=== PATIENT | female | born 1965 | race Caucasian/White ===

== ENCOUNTER 2017-12-29 08:30 | Inpatient (IN) | payer OTHER ==
[~2017-12-29] VITALS: Ht 142.2 cm; Wt 50.9 kg
[~2017-12-29 08:30] MED LIST: CeFAZolin 2 GM/DEXTROSE 0 ML IV ONE; CeFAZolin 2 GM/DEXTROSE 50 ML IV ONE; RINGERS SOLUTION,LACTATED 0 ML IV ONE; RINGERS SOLUTION,LACTATED 1,000 ML IV ONE
[2018-01-06] MEDS ORDERED: RINGERS SOLUTION,LACTATED 1,000 ML IV ONE ×2 (05:17→07:00)
[2018-01-06] MEDS ORDERED: CeFAZolin 2 GM/DEXTROSE 50 ML IV ONE ×2 (05:17→06:00)
[2018-01-06] MEDS ORDERED: DOXY100C PO (05:49)
[2018-01-06] MEDS ORDERED: CEPH500 PO (05:49)
[2018-01-06] MEDS ORDERED: AMLO-511 PO (05:49)
[2018-01-06 06:04] LABS: BASOPHILS % (AUTO) 0.4 % (0.0-2.0); EOSINOPHILS % (AUTO) 2.2 % (1.0-6.0); HEMATOCRIT 26.2 % (36-46); HEMOGLOBIN 8.8 g/dL (12.0-16.0); LYMPHOCYTES # (AUTO) 1.3 K/uL (1.0-4.8); LYMPHOCYTES % (AUTO) 31.7 % (22.0-44.0); MEAN CORPUSCULAR HGB CONC 33.7 G/dL (31.0-37.0); MEAN CORPUSCULAR VOLUME 89 fL (80-100); MONOCYTES # (AUTO) 0.5 K/uL (0.1-1.0); MONOCYTES % (AUTO) 12.2 % (2.0-9.0); NEUTROPHILS # (AUTO) 2.2 K/uL (1.8-7.7); NEUTROPHILS % (AUTO) 53.5 % (40.0-70.0); PLATELET COUNT (AUTO) 211 K/uL (150-450); RED BLOOD CELL COUNT(AUTO) 2.94 MIL/uL (4.00-5.20); RED CELL DISTRIBUTION WIDTH 15.4 % (11.5-14.5)
[2018-01-06 06:09] LABS: GLUCOMETER DEV NAME(LOC) SDS 5; GLUCOSE,POINT OF CARE 367 MG/DL (70-110)
[2018-01-06] MEDS ORDERED: BUPIVACAINE HCL/PF 0.5% 30 ML VIAL ONE (06:47)
[2018-01-06] MEDS ORDERED: GUM MASTIC/STORAX/MSAL/ALCOHOL LIQUID 0.67 ML VIAL TP ONE (06:47)
[2018-01-06] MEDS ORDERED: MUPIROCIN CALCIUM 2% 22 GM OINTMENT ONE (06:47)
[2018-01-06] MEDS ORDERED: VANCOMYCIN HCL 1 GM/VIAL ONE ×2 (06:47→07:27)
[2018-01-06] MEDS ORDERED: MICROFIBRILLAR COLLAGEN 1 GM PACKAGE TP ONE (06:47)
[2018-01-06] MEDS ORDERED: SODIUM CL IRRIG SOLN BAG 3,000 ML IRRIG ONE (06:48)
[2018-01-06] MEDS ORDERED: SODIUM CHLORIDE 0.9% 1,000 ML IV ONE ×5 (07:00→11:10)
[2018-01-06] MEDS ORDERED: INSULIN REGULAR, HUMAN 100 UNITS/ML IVP ONE (07:00)
[2018-01-06] MEDS ORDERED: VANCOMYCIN HCL 500 MG/VIAL ONE (07:27)
[2018-01-06 08:09] LABS: GLUCOMETER DEV NAME(LOC) SDS 5; GLUCOSE,POINT OF CARE 155 MG/DL (70-110)
[2018-01-06] MEDS ORDERED: ONDANSETRON HCL 4 MG/2 ML VIAL IVP PRN (09:00)
[2018-01-06] MEDS ORDERED: MEPERIDINE HCL/PF 25 MG/0.5 ML AMP IVP PRN (09:00)
[2018-01-06] MEDS ORDERED: NALOXONE HCL 0.4 MG/ML VIAL IVP PRN (09:00)
[2018-01-06] MEDS ORDERED: FentaNYL CITRATE-PF 100 MCG/2 ML VIAL IVP PRN ×2 (09:00)
[2018-01-06] MEDS ORDERED: CYCLOBENZAPRINE HCL 10 MG TABLET PO PRN (09:00)
[2018-01-06] MEDS ORDERED: DiphenhydrAMINE HCL 50 MG/ML VIAL IVP PRN (09:00)
[2018-01-06] MEDS ORDERED: HYDROmorphone 2 MG/ML SYRINGE IVP PRN (09:00)
[2018-01-06] MEDS ORDERED: OxyCODONE HCL/ACETAMINOPHEN 5-325 MG TABLET PO PRN (09:00)
[2018-01-06 10:04] LABS: GLUCOMETER DEV NAME(LOC) SDS 5; GLUCOSE,POINT OF CARE 158 MG/DL (70-110)
[2018-01-06] MEDS ORDERED: DEXTROSE 50%-WATER 25 GM/50 ML SYRINGE IVP PRN ×2 (10:15→13:15)
[2018-01-06] MEDS ORDERED: INSULIN LISPRO 100 UNITS/ML SQ PRN (10:15)
[2018-01-06] MEDS ORDERED: ONDANSETRON HCL 4 MG/2 ML VIAL ONE ×2 (10:17→10:56)
[2018-01-06] MEDS ORDERED: ONDANSETRON HCL 4 MG/2 ML VIAL IVP STA ×2 (10:22→10:57)
[2018-01-06] MEDS ORDERED: MEPERIDINE HCL/PF 25 MG/0.5 ML AMP ONE (10:34)
[2018-01-06] MEDS ORDERED: LABETALOL HCL 5 MG/ML 20 ML VIAL IVP STA (10:43)
[2018-01-06] MEDS ORDERED: LABETALOL HCL 5 MG/ML 20 ML VIAL IVP ONE (10:45)
[2018-01-06] MEDS ORDERED: METOCLOPRAMIDE HCL 5 MG/ML 2 ML VIAL ONE (10:56)
[2018-01-06] MEDS ORDERED: METOCLOPRAMIDE HCL 5 MG/ML 2 ML VIAL IVP STA (10:57)
[2018-01-06] MEDS ORDERED: SODIUM CHLORIDE 0.9% 500 ML IV STA (10:58)
[2018-01-06] MEDS ORDERED: VANCOMYCIN HCL 1 GM/D5% WATER 200 ML IV ONE (11:00)
[2018-01-06 11:49] VITALS: BP 151/74
[2018-01-06] MEDS ORDERED: MORPHINE SULFATE 2 MG/ML SYRINGE IVP PRN (13:15)
[2018-01-06] MEDS ORDERED: ACETAMINOPHEN 325 MG TABLET PO PRN (13:15)
[2018-01-06] MEDS ORDERED: HYDROCODONE/ACETAMINOPHEN 5-325 MG TABLET PO PRN (13:15)
[2018-01-06] MEDS ORDERED: ZOLPIDEM TARTRATE 5 MG TABLET PO PRN (13:15)
[2018-01-06] MEDS ORDERED: BISACODYL 10 MG RECTAL RECTAL SUPPOSITORY PR PRN (13:15)
[2018-01-06] MEDS ORDERED: MAGNESIUM HYDROXIDE SUSPENSION 30 ML UDCUP PO PRN (13:15)
[2018-01-06] MEDS: ONDANSETRON HCL 4 MG/2 ML VIAL IVP PRN ×2 (13:37→23:26)
[2018-01-06] MEDS: ACETAMINOPHEN 500 MG TABLET PO SCH ×3 (14:00→20:55)
[2018-01-06] MEDS: KETOROLAC TROMETHAMINE 15 MG/ML VIAL IVP SCH ×3 (15:54→23:22)
[2018-01-06] MEDS: HydrALAZINE HCL 20 MG/ML VIAL IVP PRN ×2 (15:54→23:23)
[2018-01-06 16:00] VITALS: BP 180/85
[2018-01-06] MEDS: INSULIN LISPRO 100 UNITS/ML SQ PRN ×2 (17:41→20:55)
[2018-01-06 17:59] LABS: GLUCOMETER DEV NAME(LOC) PV 4E2; GLUCOSE,POINT OF CARE 275 MG/DL (70-110)
[2018-01-06 17:59] LABS: GLUCOMETER DEV NAME(LOC) PV 4E2; GLUCOSE,POINT OF CARE 358 MG/DL (70-110)
[2018-01-06] MEDS ORDERED: VANCOMYCIN HCL 750 MG in DEXTROSE 5%-WATER 250 ML IV SCH (20:00)
[2018-01-06] MEDS: DOCUSATE SODIUM 100 MG CAPSULE PO SCH (20:08)
[2018-01-06 20:17] VITALS: BP 172/93
[2018-01-06] MEDS: INSULIN GLARGINE,HUM.REC.ANLOG 100 UNITS/ML SQ SCH (20:55)
[2018-01-06 22:14] LABS: GLUCOMETER DEV NAME(LOC) PV 4E2; GLUCOSE,POINT OF CARE 366 MG/DL (70-110)
[2018-01-06 23:44] VITALS: BP 122/57
[2018-01-07] VITALS (16 sets, daily range): BP systolic 108–131; BP diastolic 45–69
[2018-01-07] MEDS ORDERED: KETOROLAC TROMETHAMINE 60 MG/2 ML VIAL IM ONE (05:22)
[2018-01-07] MEDS ORDERED: EPHEDrine SULFATE 50 MG/ML VIAL IM ONE (05:22)
[2018-01-07] MEDS ORDERED: PROPOFOL 1% 20 ML VIAL IVP ONE (05:22)
[2018-01-07] MEDS ORDERED: MIDAZOLAM HCL 2 MG/2 ML VIAL IVP ONE (05:22)
[2018-01-07] MEDS ORDERED: LIDOCAINE/PF 2% 5 ML VIAL IM ONE (05:22)
[2018-01-07] MEDS ORDERED: ONDANSETRON HCL 4 MG/2 ML VIAL IVP ONE (05:22)
[2018-01-07] MEDS ORDERED: FentaNYL CITRATE-PF 100 MCG/2 ML VIAL IVP ONE (05:22)
[2018-01-07] MEDS ORDERED: MORPHINE SULFATE/PF 0.5 MG/ML 10 ML AMP IVP ONE (05:22)
[2018-01-07] MEDS ORDERED: DEXAMETHASONE SOD PHOS 4 MG/ML VIAL IVP ONE (05:22)
[2018-01-07] MEDS ORDERED: KETAMINE HCL 50 MG/ML 10 ML VIAL IVP ONE (05:22)
[2018-01-07] MEDS: KETOROLAC TROMETHAMINE 15 MG/ML VIAL IVP SCH ×3 (05:33→18:14)
[2018-01-07 05:59] LABS: GLUCOMETER DEV NAME(LOC) PV 4E2; GLUCOSE,POINT OF CARE 161 MG/DL (70-110)
[2018-01-07 05:59] LABS: GLUCOMETER DEV NAME(LOC) PV 4E2; GLUCOSE,POINT OF CARE 38 MG/DL (70-110)
[2018-01-07 06:13] LABS: BASOPHILS % (AUTO) 0.2 % (0.0-2.0); EOSINOPHILS % (AUTO) 0 % (1.0-6.0); HEMATOCRIT 22.2 % (36-46); HEMOGLOBIN 7.5 g/dL (12.0-16.0); LYMPHOCYTES # (AUTO) 0.7 K/uL (1.0-4.8); MEAN CORPUSCULAR HEMOGLOBIN 30.1 pg (26.0-34.0); MEAN CORPUSCULAR HGB CONC 33.8 G/dL (31.0-37.0); MEAN CORPUSCULAR VOLUME 89 fL (80-100); MONOCYTES # (AUTO) 0.6 K/uL (0.1-1.0); MONOCYTES % (AUTO) 6.1 % (2.0-9.0); NEUTROPHILS # (AUTO) 8.4 K/uL (1.8-7.7); PLATELET COUNT (AUTO) 185 K/uL (150-450); RED BLOOD CELL COUNT(AUTO) 2.49 MIL/uL (4.00-5.20); RED CELL DISTRIBUTION WIDTH 15.8 % (11.5-14.5)
[2018-01-07 06:22] LABS: NEUTROPHILS % (AUTO) 86.7 % (40.0-70.0)
[2018-01-07 07:14] LABS: CALCIUM, TOTAL 8.6 mg/dL (8.8-10.5); CREATININE 3.14 mg/dL (0.60-1.30); POTASSIUM 4.9 mmol/L (3.5-5.1)
[2018-01-07] MEDS ORDERED: VANCOMYCIN HCL 500 MG in DEXTROSE 5%-WATER 100 ML IV SCH (08:00)
[2018-01-07] MEDS: ENOXAPARIN SODIUM 30 MG/0.3 ML PF SYRINGE SQ SCH (08:39)
[2018-01-07] MEDS: AmLODIPine BESYLATE 5 MG TABLET PO SCH (08:40)
[2018-01-07] MEDS: ACETAMINOPHEN 500 MG TABLET PO SCH ×4 (08:40→21:00)
[2018-01-07] MEDS: PANTOPRAZOLE SODIUM 40 MG DR TABLET PO SCH (08:40)
[2018-01-07] MEDS: DOCUSATE SODIUM 100 MG CAPSULE PO SCH ×2 (08:40→21:05)
[2018-01-07] MEDS: INSULIN GLARGINE,HUM.REC.ANLOG 100 UNITS/ML SQ SCH (09:00)
[2018-01-07] MEDS: INSULIN LISPRO 100 UNITS/ML SQ PRN ×3 (12:13→21:10)
[2018-01-07] MEDS ORDERED: ALBUTEROL SULFATE 2.5 MG/0.5 ML NEB SOLUTION NEB PRN (12:15)
[2018-01-07 13:19] LABS: GLUCOMETER DEV NAME(LOC) PV 4E2; GLUCOSE,POINT OF CARE 264 MG/DL (70-110)
[2018-01-07] MEDS ORDERED: SODIUM CHLORIDE 0.9% 250 ML IV ONE (16:03)
[2018-01-07 17:20] LABS: GLUCOMETER DEV NAME(LOC) PV 4E2; GLUCOSE,POINT OF CARE 281 MG/DL (70-110)
[2018-01-07] MEDS: FERROUS SULFATE 325 MG EC TABLET PO SCH (18:14)
[2018-01-07 22:44] LABS: GLUCOMETER DEV NAME(LOC) PV 4E2; GLUCOSE,POINT OF CARE 247 MG/DL (70-110)
[2018-01-08] VITALS: BP 131/68
[2018-01-08] MEDS: KETOROLAC TROMETHAMINE 15 MG/ML VIAL IVP SCH ×2 (00:21→06:23)
[2018-01-08 04:36] VITALS: BP 135/70
[2018-01-08 06:00] LABS: BASOPHILS % (AUTO) 0.4 % (0.0-2.0); EOSINOPHILS % (AUTO) 1.1 % (1.0-6.0); HEMATOCRIT 25.4 % (36-46); HEMOGLOBIN 8.6 g/dL (12.0-16.0); LYMPHOCYTES # (AUTO) 1.4 K/uL (1.0-4.8); LYMPHOCYTES % (AUTO) 22.3 % (22.0-44.0); MEAN CORPUSCULAR HEMOGLOBIN 30.4 pg (26.0-34.0); MEAN CORPUSCULAR HGB CONC 33.8 G/dL (31.0-37.0); MEAN CORPUSCULAR VOLUME 90 fL (80-100); MONOCYTES # (AUTO) 0.6 K/uL (0.1-1.0); MONOCYTES % (AUTO) 8.7 % (2.0-9.0); NEUTROPHILS # (AUTO) 4.3 K/uL (1.8-7.7); NEUTROPHILS % (AUTO) 67.5 % (40.0-70.0); PLATELET COUNT (AUTO) 181 K/uL (150-450); RED BLOOD CELL COUNT(AUTO) 2.83 MIL/uL (4.00-5.20); RED CELL DISTRIBUTION WIDTH 15.3 % (11.5-14.5)
[2018-01-08 06:17] LABS: CREATININE 3.87 mg/dL (0.60-1.30); POTASSIUM 5.2 mmol/L (3.5-5.1)
[2018-01-08 07:03] LABS: GLUCOMETER DEV NAME(LOC) PV 4E2; GLUCOSE,POINT OF CARE 136 MG/DL (70-110)
[2018-01-08 07:50] VITALS: BP 133/77
[2018-01-08] MEDS: DOCUSATE SODIUM 100 MG CAPSULE PO SCH ×2 (08:32→20:50)
[2018-01-08] MEDS: PANTOPRAZOLE SODIUM 40 MG DR TABLET PO SCH (08:32)
[2018-01-08] MEDS: FERROUS SULFATE 325 MG EC TABLET PO SCH ×3 (08:32→17:08)
[2018-01-08] MEDS: AmLODIPine BESYLATE 5 MG TABLET PO SCH (08:32)
[2018-01-08] MEDS: ENOXAPARIN SODIUM 30 MG/0.3 ML PF SYRINGE SQ SCH (08:33)
[2018-01-08] MEDS: ACETAMINOPHEN 500 MG TABLET PO SCH ×4 (08:39→20:54)
[2018-01-08 11:27] VITALS: BP 133/70
[2018-01-08] MEDS: BACITRACIN 28.4 GM OINTMENT TP SCH (12:04)
[2018-01-08] MEDS: INSULIN LISPRO 100 UNITS/ML SQ PRN ×3 (12:10→20:58)
[2018-01-08] MEDS ORDERED: VANCOMYCIN HCL 1 GM/D5% WATER 200 ML IV PRN (12:15)
[2018-01-08] MEDS ORDERED: CefTAZidime PENTAHYDRATE 0.5 GM in DEXTROSE 5%-WATER 50 ML IV SCH (13:00)
[2018-01-08 13:24] LABS: VANCOMYCIN,RANDOM 32.8 mcg/mL (25.0-50.0)
[2018-01-08 15:39] LABS: GLUCOMETER DEV NAME(LOC) PV 4E2; GLUCOSE,POINT OF CARE 189 MG/DL (70-110)
[2018-01-08 16:54] VITALS: BP 129/74
[2018-01-08 20:17] VITALS: BP 116/59
[2018-01-08] MEDS: HEPARIN SODIUM,PORCINE 5,000 UNITS/ML VIAL SQ SCH (20:51)
[2018-01-08 22:43] LABS: GLUCOMETER DEV NAME(LOC) 6N 1E; GLUCOSE,POINT OF CARE 292 MG/DL (70-110)
[2018-01-08 22:44] LABS: GLUCOMETER DEV NAME(LOC) 6N 1E; GLUCOSE,POINT OF CARE 287 MG/DL (70-110)
[2018-01-09] VITALS (7 sets, daily range): BP systolic 128–148; BP diastolic 62–75
[2018-01-09 05:52] LABS: BASOPHILS % (AUTO) 0.4 % (0.0-2.0); EOSINOPHILS % (AUTO) 1.5 % (1.0-6.0); HEMATOCRIT 25.4 % (36-46); HEMOGLOBIN 8.6 g/dL (12.0-16.0); LYMPHOCYTES # (AUTO) 1.4 K/uL (1.0-4.8); LYMPHOCYTES % (AUTO) 28.7 % (22.0-44.0); MEAN CORPUSCULAR HGB CONC 33.8 G/dL (31.0-37.0); MEAN CORPUSCULAR VOLUME 89 fL (80-100); MONOCYTES # (AUTO) 0.5 K/uL (0.1-1.0); MONOCYTES % (AUTO) 11.2 % (2.0-9.0); NEUTROPHILS # (AUTO) 2.8 K/uL (1.8-7.7); NEUTROPHILS % (AUTO) 58.2 % (40.0-70.0); PLATELET COUNT (AUTO) 190 K/uL (150-450); RED BLOOD CELL COUNT(AUTO) 2.86 MIL/uL (4.00-5.20); RED CELL DISTRIBUTION WIDTH 15.1 % (11.5-14.5)
[2018-01-09 06:17] LABS: % IRON SATURATION 44.6 % (22-44)
[2018-01-09 06:24] LABS: C-REACTIVE PROTEIN QUANT 0.34 mg/dL (0.00-0.30); CALCIUM, TOTAL 8.4 mg/dL (8.8-10.5); CREATININE 3.48 mg/dL (0.60-1.30); MAGNESIUM 2.1 mg/dL (1.80-2.40); PHOSPHORUS 3.6 mg/dL (2.5-4.9); POTASSIUM 5.1 mmol/L (3.5-5.1); VANCOMYCIN,RANDOM 28.9 mcg/mL (25.0-50.0)
[2018-01-09 07:13] LABS: GLUCOMETER DEV NAME(LOC) 6N 1E; GLUCOSE,POINT OF CARE 120 MG/DL (70-110)
[2018-01-09 07:37] LABS: CREATININE,URINE RANDOM 36.1 mg/dL (30.0-125.0)
[2018-01-09 07:58] LABS: ERYTHROCYTE SEDIMENTATION RATE 45 MM/HR (0-20)
[2018-01-09 08:44] LABS: APPEARANCE,URINE CLOUDY (CLEAR); BILIRUBIN,URINE NEGATIVE (NEGATIVE); GLUCOSE, URINE (UA) 100 mg/dL (NEGATIVE); KETONES,URINE NEGATIVE (NEGATIVE); LEUKOCYTE ESTERASE ,URINE TRACE (NEGATIVE); NITRATE,URINE NEGATIVE (NEGATIVE); OCCULT BLOOD,URINE LARGE (NEGATIVE); PH,URINE 5.5 (5.0-8.0); PROTEIN,URINE SEE CONFIRM (NEGATIVE); UROBILINOGEN,URINE 0.2 mg/dL (<=1.0)
[2018-01-09] MEDS: ACETAMINOPHEN 500 MG TABLET PO SCH ×4 (09:00→19:59)
[2018-01-09] MEDS: DOCUSATE SODIUM 100 MG CAPSULE PO SCH ×3 (09:00→19:59)
[2018-01-09] MEDS: PANTOPRAZOLE SODIUM 40 MG DR TABLET PO SCH (09:33)
[2018-01-09] MEDS: HEPARIN SODIUM,PORCINE 5,000 UNITS/ML VIAL SQ SCH ×2 (09:33→20:00)
[2018-01-09] MEDS: AmLODIPine BESYLATE 5 MG TABLET PO SCH (09:34)
[2018-01-09] MEDS: FERROUS SULFATE 325 MG EC TABLET PO SCH ×3 (09:34→17:45)
[2018-01-09] MEDS: BACITRACIN 28.4 GM OINTMENT TP SCH (09:34)
[2018-01-09 09:37] LABS: BACTERIA,URINE None Seen /HPF (None Seen); RBC,URINE >100 /HPF (0-2); SULFOSALICYLIC ACID,URINE 3+ (Negative); WBC,URINE 0-2 /HPF (0-5)
[2018-01-09 09:38] LABS: RENAL EPITHELIAL CELLS,URINE Rare /LPF (None Seen); SQUAMOUS EPITHELIAL CELL,UR Rare /LPF (None Seen)
[2018-01-09] MEDS ORDERED: EPOETIN ALFA 10,000 UNITS/ML VIAL SQ ONE (10:00)
[2018-01-09] MEDS ORDERED: AmLODIPine BESYLATE 5 MG TABLET PO ONE (10:15)
[2018-01-09] MEDS: INSULIN LISPRO 100 UNITS/ML SQ PRN ×3 (11:44→20:16)
[2018-01-09] MEDS: CefTAZidime PENTAHYDRATE 1 GM in DEXTROSE 5%-WATER 50 ML IV SCH (14:31)
[2018-01-09 17:20] LABS: GLUCOMETER DEV NAME(LOC) 6N 1E; GLUCOSE,POINT OF CARE 200 MG/DL (70-110)
[2018-01-09 21:20] LABS: GLUCOMETER DEV NAME(LOC) 6N 2D; GLUCOSE,POINT OF CARE 204 MG/DL (70-110)
[2018-01-09 22:59] LABS: GLUCOMETER DEV NAME(LOC) 6N 1E; GLUCOSE,POINT OF CARE 246 MG/DL (70-110)
[2018-01-10 04:15] VITALS: BP 143/73
[2018-01-10] MEDS: INSULIN LISPRO 100 UNITS/ML SQ PRN ×4 (05:35→20:56)
[2018-01-10 06:19] LABS: CALCIUM, TOTAL 8.4 mg/dL (8.8-10.5); CREATININE 3.32 mg/dL (0.60-1.30)
[2018-01-10 07:04] LABS: GLUCOMETER DEV NAME(LOC) 6N 2D; GLUCOSE,POINT OF CARE 171 MG/DL (70-110)
[2018-01-10 07:10] VITALS: BP 142/80
[2018-01-10] MEDS: HEPARIN SODIUM,PORCINE 5,000 UNITS/ML VIAL SQ SCH ×2 (08:19→20:46)
[2018-01-10] MEDS: PANTOPRAZOLE SODIUM 40 MG DR TABLET PO SCH (08:19)
[2018-01-10] MEDS: AmLODIPine BESYLATE 5 MG TABLET PO SCH (08:19)
[2018-01-10] MEDS: FERROUS SULFATE 325 MG EC TABLET PO SCH ×3 (08:19→17:42)
[2018-01-10] MEDS: BACITRACIN 28.4 GM OINTMENT TP SCH (08:20)
[2018-01-10] MEDS: ACETAMINOPHEN 500 MG TABLET PO SCH ×4 (08:20→20:46)
[2018-01-10] MEDS: DOCUSATE SODIUM 100 MG CAPSULE PO SCH ×2 (09:00→20:46)
[2018-01-10 11:10] VITALS: BP 150/74
[2018-01-10] MEDS ORDERED: LEVO250 PO (12:29)
[2018-01-10] MEDS: CefTAZidime PENTAHYDRATE 1 GM in DEXTROSE 5%-WATER 50 ML IV SCH (13:53)
[2018-01-10 15:10] VITALS: BP 145/81
[2018-01-10] MEDS: LEVOFLOXACIN 250 MG TABLET PO SCH (15:57)
[2018-01-10] MEDS ORDERED: FERROUS SULFATE 325 MG EC TABLET PO SCH (18:00)
[2018-01-10 19:55] VITALS: BP 120/59
[2018-01-10 20:04] LABS: GLUCOMETER DEV NAME(LOC) 6N 2D; GLUCOSE,POINT OF CARE 262 MG/DL (70-110)
[2018-01-10 20:04] LABS: GLUCOMETER DEV NAME(LOC) 6N 2D; GLUCOSE,POINT OF CARE 209 MG/DL (70-110)
[2018-01-10 23:11] VITALS: BP 147/68
[2018-01-11 04:55] VITALS: BP 146/68
[2018-01-11] MEDS: INSULIN LISPRO 100 UNITS/ML SQ PRN ×4 (06:04→20:29)
[2018-01-11 06:15] LABS: GLUCOMETER DEV NAME(LOC) 6N 1E; GLUCOSE,POINT OF CARE 197 MG/DL (70-110)
[2018-01-11 06:34] LABS: CALCIUM, TOTAL 8.6 mg/dL (8.8-10.5); CREATININE 2.85 mg/dL (0.60-1.30); POTASSIUM 4.7 mmol/L (3.5-5.1)
[2018-01-11 07:15] VITALS: BP 142/73
[2018-01-11] MEDS: PANTOPRAZOLE SODIUM 40 MG DR TABLET PO SCH (08:06)
[2018-01-11] MEDS: FERROUS SULFATE 325 MG EC TABLET PO SCH ×3 (08:06→17:41)
[2018-01-11] MEDS: DOCUSATE SODIUM 100 MG CAPSULE PO SCH ×2 (08:06→20:28)
[2018-01-11] MEDS: HEPARIN SODIUM,PORCINE 5,000 UNITS/ML VIAL SQ SCH ×2 (08:07→20:28)
[2018-01-11] MEDS: ACETAMINOPHEN 500 MG TABLET PO SCH ×4 (08:07→20:28)
[2018-01-11] MEDS: AmLODIPine BESYLATE 5 MG TABLET PO SCH (08:58)
[2018-01-11] MEDS: BACITRACIN 28.4 GM OINTMENT TP SCH (08:58)
[2018-01-11 11:17] VITALS: BP 136/78
[2018-01-11 11:38] LABS: GLUCOMETER DEV NAME(LOC) 6N 2D; GLUCOSE,POINT OF CARE 242 MG/DL (70-110)
[2018-01-11 11:40] LABS: GLUCOMETER DEV NAME(LOC) 6N 2D; GLUCOSE,POINT OF CARE 250 MG/DL (70-110)
[2018-01-11] MEDS ORDERED: AMLO-512 PO (12:29)
[2018-01-11 17:39] LABS: GLUCOMETER DEV NAME(LOC) 6N 1E; GLUCOSE,POINT OF CARE 251 MG/DL (70-110)
[2018-01-11 20:09] VITALS: BP 140/67
[2018-01-11 23:30] VITALS: BP 134/69
[2018-01-12 03:30] VITALS: BP 126/65
[2018-01-12 05:41] LABS: CALCIUM, TOTAL 8.5 mg/dL (8.8-10.5); CREATININE 3.01 mg/dL (0.60-1.30); POTASSIUM 4.5 mmol/L (3.5-5.1)
[2018-01-12] MEDS: INSULIN LISPRO 100 UNITS/ML SQ PRN ×4 (06:00→23:14)
[2018-01-12 06:09] LABS: GLUCOMETER DEV NAME(LOC) 6N 1E; GLUCOSE,POINT OF CARE 154 MG/DL (70-110)
[2018-01-12 06:45] LABS: GLUCOMETER DEV NAME(LOC) 6N 2D; GLUCOSE,POINT OF CARE 232 MG/DL (70-110)
[2018-01-12 08:00] VITALS: BP 149/70
[2018-01-12] MEDS: ACETAMINOPHEN 500 MG TABLET PO SCH ×5 (09:00→21:21)
[2018-01-12] MEDS: BACITRACIN 28.4 GM OINTMENT TP SCH (09:05)
[2018-01-12] MEDS: HEPARIN SODIUM,PORCINE 5,000 UNITS/ML VIAL SQ SCH ×2 (09:05→21:20)
[2018-01-12] MEDS: AmLODIPine BESYLATE 5 MG TABLET PO SCH (09:06)
[2018-01-12] MEDS: LEVOFLOXACIN 250 MG TABLET PO SCH (09:06)
[2018-01-12] MEDS: PANTOPRAZOLE SODIUM 40 MG DR TABLET PO SCH (09:06)
[2018-01-12] MEDS: FERROUS SULFATE 325 MG EC TABLET PO SCH ×3 (09:06→18:24)
[2018-01-12] MEDS: DOCUSATE SODIUM 100 MG CAPSULE PO SCH ×2 (09:06→21:00)
[2018-01-12] MEDS ORDERED: FLUCONAZOLE 200 MG TABLET PO ONE (11:15)
[2018-01-12 11:56] VITALS: BP 137/66
[2018-01-12 12:04] LABS: BILIRUBIN,DIRECT 0.1 mg/dL (0.00-0.20); BILIRUBIN,TOTAL 0.3 mg/dL (0.1-1.0); TOTAL PROTEIN, SERUM 6.5 g/dL (6.4-8.2)
[2018-01-12 14:14] LABS: GLUCOMETER DEV NAME(LOC) 6N 2D; GLUCOSE,POINT OF CARE 169 MG/DL (70-110)
[2018-01-12 16:09] VITALS: BP 138/66
[2018-01-12 19:26] VITALS: BP 141/66
[2018-01-12 21:35] LABS: GLUCOMETER DEV NAME(LOC) 6N 2D; GLUCOSE,POINT OF CARE 218 MG/DL (70-110)
[2018-01-12 23:44] LABS: GLUCOMETER DEV NAME(LOC) 6N 2D; GLUCOSE,POINT OF CARE 169 MG/DL (70-110)
[2018-01-12 23:53] VITALS: BP 135/64
[2018-01-13 04:54] VITALS: BP 130/67
[2018-01-13 05:14] LABS: GLUCOMETER DEV NAME(LOC) 6N 1E; GLUCOSE,POINT OF CARE 104 MG/DL (70-110)
[2018-01-13 07:38] VITALS: BP 125/70
[2018-01-13] MEDS: PANTOPRAZOLE SODIUM 40 MG DR TABLET PO SCH (09:31)
[2018-01-13] MEDS: FERROUS SULFATE 325 MG EC TABLET PO SCH ×3 (09:32→16:34)
[2018-01-13] MEDS: AmLODIPine BESYLATE 5 MG TABLET PO SCH (09:32)
[2018-01-13] MEDS: FLUCONAZOLE 200 MG TABLET PO SCH (09:32)
[2018-01-13] MEDS: DOCUSATE SODIUM 100 MG CAPSULE PO SCH ×2 (09:32→21:00)
[2018-01-13] MEDS: HEPARIN SODIUM,PORCINE 5,000 UNITS/ML VIAL SQ SCH ×2 (09:33→21:01)
[2018-01-13 11:34] LABS: GLUCOMETER DEV NAME(LOC) PV 4E2; GLUCOSE,POINT OF CARE 166 MG/DL (70-110)
[2018-01-13 11:53] VITALS: BP 134/68
[2018-01-13] MEDS: ACETAMINOPHEN 500 MG TABLET PO SCH ×4 (11:53→21:01)
[2018-01-13] MEDS: INSULIN LISPRO 100 UNITS/ML SQ PRN ×3 (11:54→22:21)
[2018-01-13 15:32] VITALS: BP 136/70
[2018-01-13] MEDS: BACITRACIN 28.4 GM OINTMENT TP SCH (16:34)
[2018-01-13 17:49] LABS: GLUCOMETER DEV NAME(LOC) PV 4E2; GLUCOSE,POINT OF CARE 237 MG/DL (70-110)
[2018-01-13 20:04] VITALS: BP 126/66
[2018-01-13 23:19] LABS: GLUCOMETER DEV NAME(LOC) PV 4E2; GLUCOSE,POINT OF CARE 227 MG/DL (70-110)
[2018-01-14 00:17] VITALS: BP 127/65
[2018-01-14 04:17] VITALS: BP 112/58
[2018-01-14 06:14] LABS: BASOPHILS % (AUTO) 0.3 % (0.0-2.0); EOSINOPHILS % (AUTO) 1.9 % (1.0-6.0); HEMATOCRIT 25.2 % (36-46); HEMOGLOBIN 8.6 g/dL (12.0-16.0); LYMPHOCYTES # (AUTO) 1.6 K/uL (1.0-4.8); LYMPHOCYTES % (AUTO) 32.9 % (22.0-44.0); MEAN CORPUSCULAR HEMOGLOBIN 31.2 pg (26.0-34.0); MEAN CORPUSCULAR VOLUME 92 fL (80-100); MONOCYTES # (AUTO) 0.6 K/uL (0.1-1.0); MONOCYTES % (AUTO) 11.7 % (2.0-9.0); NEUTROPHILS # (AUTO) 2.7 K/uL (1.8-7.7); NEUTROPHILS % (AUTO) 53.2 % (40.0-70.0); PLATELET COUNT (AUTO) 257 K/uL (150-450); RED BLOOD CELL COUNT(AUTO) 2.75 MIL/uL (4.00-5.20)
[2018-01-14 06:29] LABS: GLUCOMETER DEV NAME(LOC) PV 4E2; GLUCOSE,POINT OF CARE 119 MG/DL (70-110)
[2018-01-14 06:33] LABS: CALCIUM, TOTAL 8.6 mg/dL (8.8-10.5); CREATININE 3.33 mg/dL (0.60-1.30); MAGNESIUM 1.9 mg/dL (1.80-2.40); PHOSPHORUS 4.6 mg/dL (2.5-4.9); POTASSIUM 4.2 mmol/L (3.5-5.1)
[2018-01-14 08:08] VITALS: BP 129/65
[2018-01-14] MEDS: DOCUSATE SODIUM 100 MG CAPSULE PO SCH ×2 (08:28→20:51)
[2018-01-14] MEDS: PANTOPRAZOLE SODIUM 40 MG DR TABLET PO SCH (08:29)
[2018-01-14] MEDS: FERROUS SULFATE 325 MG EC TABLET PO SCH (08:29)
[2018-01-14] MEDS: HEPARIN SODIUM,PORCINE 5,000 UNITS/ML VIAL SQ SCH ×2 (08:29→20:52)
[2018-01-14] MEDS: AmLODIPine BESYLATE 5 MG TABLET PO SCH (08:29)
[2018-01-14] MEDS: LEVOFLOXACIN 250 MG TABLET PO SCH (08:32)
[2018-01-14] MEDS: FLUCONAZOLE 200 MG TABLET PO SCH (08:32)
[2018-01-14] MEDS: ACETAMINOPHEN 500 MG TABLET PO SCH ×4 (08:36→20:52)
[2018-01-14] MEDS: INSULIN LISPRO 100 UNITS/ML SQ PRN ×2 (11:51→17:49)
[2018-01-14] MEDS: BACITRACIN 28.4 GM OINTMENT TP SCH (11:51)
[2018-01-14 11:54] VITALS: BP 126/65
[2018-01-14 15:52] VITALS: BP 127/66
[2018-01-14 17:59] LABS: GLUCOMETER DEV NAME(LOC) PV 4E2; GLUCOSE,POINT OF CARE 206 MG/DL (70-110)
[2018-01-14 17:59] LABS: GLUCOMETER DEV NAME(LOC) PV 4E2; GLUCOSE,POINT OF CARE 167 MG/DL (70-110)
[2018-01-14 19:40] VITALS: BP 113/67
[2018-01-14 21:14] LABS: GLUCOMETER DEV NAME(LOC) PV 4E2; GLUCOSE,POINT OF CARE 121 MG/DL (70-110)
[2018-01-15 00:13] VITALS: BP 116/60
[2018-01-15 05:40] VITALS: BP 118/65
[2018-01-15 06:32] LABS: CALCIUM, TOTAL 8.5 mg/dL (8.8-10.5); CREATININE 3.39 mg/dL (0.60-1.30); PHOSPHORUS 4.6 mg/dL (2.5-4.9); POTASSIUM 4.4 mmol/L (3.5-5.1)
[2018-01-15 06:36] LABS: GLUCOMETER DEV NAME(LOC) PV 4E2; GLUCOSE,POINT OF CARE 119 MG/DL (70-110)
[2018-01-15] MEDS: DOCUSATE SODIUM 100 MG CAPSULE PO SCH ×2 (08:50→20:08)
[2018-01-15] MEDS: HEPARIN SODIUM,PORCINE 5,000 UNITS/ML VIAL SQ SCH ×2 (08:51→20:08)
[2018-01-15] MEDS: BACITRACIN 28.4 GM OINTMENT TP SCH (08:51)
[2018-01-15] MEDS: AmLODIPine BESYLATE 5 MG TABLET PO SCH (08:52)
[2018-01-15] MEDS: ACETAMINOPHEN 500 MG TABLET PO SCH ×4 (08:52→20:08)
[2018-01-15] MEDS: PANTOPRAZOLE SODIUM 40 MG DR TABLET PO SCH (08:52)
[2018-01-15] MEDS: FLUCONAZOLE 200 MG TABLET PO SCH (08:53)
[2018-01-15] MEDS: INSULIN LISPRO 100 UNITS/ML SQ PRN ×3 (11:49→20:14)
[2018-01-15 11:51] VITALS: BP 124/60
[2018-01-15 15:38] VITALS: BP 120/64
[2018-01-15 17:24] LABS: GLUCOMETER DEV NAME(LOC) PV 4E2; GLUCOSE,POINT OF CARE 216 MG/DL (70-110)
[2018-01-15 17:24] LABS: GLUCOMETER DEV NAME(LOC) PV 4E2; GLUCOSE,POINT OF CARE 200 MG/DL (70-110)
[2018-01-15 19:57] VITALS: BP 117/91
[2018-01-15 21:24] LABS: GLUCOMETER DEV NAME(LOC) 6N 2D; GLUCOSE,POINT OF CARE 198 MG/DL (70-110)
[2018-01-15 23:47] VITALS: BP 126/66
[2018-01-16 04:49] VITALS: BP 120/70
[2018-01-16 07:09] LABS: GLUCOMETER DEV NAME(LOC) 6N 1E; GLUCOSE,POINT OF CARE 111 MG/DL (70-110)
[2018-01-16 07:44] VITALS: BP 132/66
[2018-01-16] MEDS: LevETIRAcetam 500 MG TABLET PO SCH (08:31)
[2018-01-16] MEDS: FLUCONAZOLE 200 MG TABLET PO SCH (08:31)
[2018-01-16] MEDS: HEPARIN SODIUM,PORCINE 5,000 UNITS/ML VIAL SQ SCH ×2 (08:31→20:00)
[2018-01-16] MEDS: DOCUSATE SODIUM 100 MG CAPSULE PO SCH ×2 (08:31→20:03)
[2018-01-16] MEDS: LEVOFLOXACIN 250 MG TABLET PO SCH (08:31)
[2018-01-16] MEDS: ACETAMINOPHEN 500 MG TABLET PO SCH ×4 (08:32→20:04)
[2018-01-16] MEDS: AmLODIPine BESYLATE 5 MG TABLET PO SCH (08:32)
[2018-01-16] MEDS: PANTOPRAZOLE SODIUM 40 MG DR TABLET PO SCH (08:32)
[2018-01-16 11:22] VITALS: BP 127/61
[2018-01-16] MEDS: INSULIN LISPRO 100 UNITS/ML SQ PRN ×3 (12:25→20:02)
[2018-01-16 13:44] LABS: GLUCOMETER DEV NAME(LOC) 6N 2D; GLUCOSE,POINT OF CARE 206 MG/DL (70-110)
[2018-01-16] MEDS: BACITRACIN 28.4 GM OINTMENT TP SCH (14:16)
[2018-01-16 15:42] VITALS: BP 126/77
[2018-01-16 17:24] LABS: GLUCOMETER DEV NAME(LOC) 6N 1E; GLUCOSE,POINT OF CARE 149 MG/DL (70-110)
[2018-01-16 20:16] VITALS: BP 106/61
[2018-01-16 23:27] VITALS: BP 116/65
[2018-01-16 23:33] LABS: GLUCOMETER DEV NAME(LOC) 6N 1E; GLUCOSE,POINT OF CARE 165 MG/DL (70-110)
[2018-01-17 04:33] VITALS: BP 122/54
[2018-01-17] MEDS: INSULIN LISPRO 100 UNITS/ML SQ PRN ×4 (05:52→20:17)
[2018-01-17] MEDS: PANTOPRAZOLE SODIUM 40 MG DR TABLET PO SCH (08:23)
[2018-01-17] MEDS: FLUCONAZOLE 200 MG TABLET PO SCH (08:24)
[2018-01-17] MEDS: AmLODIPine BESYLATE 5 MG TABLET PO SCH (08:24)
[2018-01-17] MEDS: DOCUSATE SODIUM 100 MG CAPSULE PO SCH ×2 (08:24→20:15)
[2018-01-17] MEDS: HEPARIN SODIUM,PORCINE 5,000 UNITS/ML VIAL SQ SCH ×2 (08:25→20:15)
[2018-01-17] MEDS: BACITRACIN 28.4 GM OINTMENT TP SCH (08:25)
[2018-01-17] MEDS: ACETAMINOPHEN 500 MG TABLET PO SCH ×4 (08:26→20:16)
[2018-01-17 11:48] VITALS: BP 121/63
[2018-01-17 16:05] VITALS: BP 124/61
[2018-01-17 17:04] LABS: GLUCOMETER DEV NAME(LOC) 6N 1E; GLUCOSE,POINT OF CARE 142 MG/DL (70-110)
[2018-01-17 18:00] LABS: GLUCOMETER DEV NAME(LOC) 6N 1E; GLUCOSE,POINT OF CARE 215 MG/DL (70-110)
[2018-01-17 19:45] VITALS: BP 113/63
[2018-01-17 22:15] LABS: GLUCOMETER DEV NAME(LOC) 6N 1E; GLUCOSE,POINT OF CARE 197 MG/DL (70-110)
[2018-01-17 22:15] LABS: GLUCOMETER DEV NAME(LOC) 6N 2D; GLUCOSE,POINT OF CARE 162 MG/DL (70-110)
[2018-01-17 23:54] VITALS: BP 118/67
[2018-01-18 03:30] VITALS: BP 128/66
[2018-01-18 06:49] LABS: GLUCOMETER DEV NAME(LOC) 6N 1E; GLUCOSE,POINT OF CARE 135 MG/DL (70-110)
[2018-01-18 07:07] LABS: BASOPHILS % (AUTO) 0.7 % (0.0-2.0); EOSINOPHILS % (AUTO) 1.8 % (1.0-6.0); HEMATOCRIT 25.7 % (36-46); HEMOGLOBIN 8.8 g/dL (12.0-16.0); LYMPHOCYTES # (AUTO) 1.3 K/uL (1.0-4.8); LYMPHOCYTES % (AUTO) 26.5 % (22.0-44.0); MEAN CORPUSCULAR HEMOGLOBIN 30.9 pg (26.0-34.0); MEAN CORPUSCULAR HGB CONC 34.1 G/dL (31.0-37.0); MEAN CORPUSCULAR VOLUME 91 fL (80-100); MONOCYTES # (AUTO) 0.4 K/uL (0.1-1.0); MONOCYTES % (AUTO) 8.7 % (2.0-9.0); NEUTROPHILS # (AUTO) 3.1 K/uL (1.8-7.7); NEUTROPHILS % (AUTO) 62.3 % (40.0-70.0); PLATELET COUNT (AUTO) 279 K/uL (150-450); RED BLOOD CELL COUNT(AUTO) 2.83 MIL/uL (4.00-5.20); RED CELL DISTRIBUTION WIDTH 16.4 % (11.5-14.5)
[2018-01-18 07:19] LABS: CALCIUM, TOTAL 8.7 mg/dL (8.8-10.5); CREATININE 3.52 mg/dL (0.60-1.30); MAGNESIUM 2.4 mg/dL (1.80-2.40); POTASSIUM 4.3 mmol/L (3.5-5.1)
[2018-01-18 07:39] VITALS: BP 117/63
[2018-01-18] MEDS: FLUCONAZOLE 200 MG TABLET PO SCH (09:18)
[2018-01-18] MEDS: PANTOPRAZOLE SODIUM 40 MG DR TABLET PO SCH (09:18)
[2018-01-18] MEDS: DOCUSATE SODIUM 100 MG CAPSULE PO SCH (09:18)
[2018-01-18] MEDS: ACETAMINOPHEN 500 MG TABLET PO SCH ×3 (09:18→16:00)
[2018-01-18] MEDS: LevETIRAcetam 500 MG TABLET PO SCH (09:18)
[2018-01-18] MEDS: HEPARIN SODIUM,PORCINE 5,000 UNITS/ML VIAL SQ SCH (09:19)
[2018-01-18] MEDS: AmLODIPine BESYLATE 5 MG TABLET PO SCH (09:19)
[2018-01-18] MEDS: LEVOFLOXACIN 250 MG TABLET PO SCH (09:19)
[2018-01-18] MEDS: INSULIN LISPRO 100 UNITS/ML SQ PRN (11:29)
[2018-01-18 11:40] LABS: GLUCOMETER DEV NAME(LOC) 6N 2D; GLUCOSE,POINT OF CARE 179 MG/DL (70-110)
[2018-01-18 11:45] VITALS: BP 114/67
[2018-01-18] MEDS ORDERED: LEVO250 PO (12:41)
[2018-01-18] MEDS ORDERED: FERR-89 PO (12:42)
[2018-01-18] MEDS ORDERED: FLUC50TA PO (12:43)
[2018-01-18 15:51] LABS: APPEARANCE,URINE CLOUDY (CLEAR); BILIRUBIN,URINE NEGATIVE (NEGATIVE); GLUCOSE, URINE (UA) 100 mg/dL (NEGATIVE); KETONES,URINE NEGATIVE (NEGATIVE); LEUKOCYTE ESTERASE ,URINE NEGATIVE (NEGATIVE); NITRATE,URINE NEGATIVE (NEGATIVE); OCCULT BLOOD,URINE NEGATIVE (NEGATIVE); PROTEIN,URINE SEE CONFIRM (NEGATIVE); UROBILINOGEN,URINE 0.2 mg/dL (<=1.0)
[2018-01-18 16:09] LABS: RBC,URINE 0-2 /HPF (0-2); SULFOSALICYLIC ACID,URINE 2+ (Negative); WBC,URINE 0-2 /HPF (0-5)
[2018-01-18 16:10] LABS: BACTERIA,URINE None Seen /HPF (None Seen); SQUAMOUS EPITHELIAL CELL,UR Many /LPF (None Seen)
== END 2018-01-18 17:25 | disposition home or self-care (01) | DRG 496 ==
LOC: 4E 01-06 05:23 → 6N 01-08 15:18 → 4E 01-13 06:20 → 6N 01-15 17:05
PROVIDERS: ADMIT Orthopaedic Surgery; ATTEND Orthopaedic Surgery
PROC: 0QPG04Z Removal of Internal Fixation Device from Right Tibia, Open Approach (ICD-10-PCS; principal; 2018-01-07)
PROC: 30233N1 Transfusion of Nonautologous Red Blood Cells into Peripheral Vein, Percutaneous Approach (ICD-10-PCS; 2018-01-07)
DX: T84.7XXA Infection and inflammatory reaction due to other internal orthopedic prosthetic devices, implants and grafts, initial encounter (principal); N18.4 Chronic kidney disease, stage 4 (severe); N17.9 Acute kidney failure, unspecified; M86.8X6 Other osteomyelitis, lower leg; D63.8 Anemia in other chronic diseases classified elsewhere; E11.22 Type 2 diabetes mellitus with diabetic chronic kidney disease; E11.69 Type 2 diabetes mellitus with other specified complication; J45.20 Mild intermittent asthma, uncomplicated; I12.9 Hypertensive chronic kidney disease with stage 1 through stage 4 chronic kidney disease, or unspecified chronic kidney disease; B96.1 Klebsiella pneumoniae [K. pneumoniae] as the cause of diseases classified elsewhere; E11.649 Type 2 diabetes mellitus with hypoglycemia without coma; Z79.899 Other long term (current) drug therapy; Y83.8 Other surgical procedures as the cause of abnormal reaction of the patient, or of later complication, without mention of misadventure at the time of the procedure; Y92.89 Other specified places as the place of occurrence of the external cause
CPT/HCPCS: 76770; 82570; 82728; 83036; 83540; 83550; 83735; 83970; 84100; 84145; 84156; 84300; 85651; 86140; 86850; 86900; 86901; 86920; 87070; 87081; 87205; 88300; 89050; 93005; 97116; 97162; 97165; 97530; G0238; J0360; J0690; J0713; J0885; J1100; J1644; J1650; J1815; J1885; J2250; J2274; J2405; J2704; J2765; J3010; J3370; J3490; J7030; J7050; J7060; J7120; P9016

== ENCOUNTER 2018-07-02 12:46 | Emergency (ER) | payer SELFPAY ==
[~2018-07-02] VITALS: Ht 157.5 cm; Wt 60.0 kg
[~2018-07-02 12:46] MED LIST changes: -CeFAZolin 2 GM/DEXTROSE 0 ML IV ONE; -CeFAZolin 2 GM/DEXTROSE 50 ML IV ONE; +FLUC50TA PO; +LEVO250 PO; -RINGERS SOLUTION,LACTATED 0 ML IV ONE; -RINGERS SOLUTION,LACTATED 1,000 ML IV ONE
[2018-07-02] MEDS ORDERED: METF-960 PO (13:02)
[2018-07-02 13:08] LABS: GLUCOSE,POINT OF CARE 422 MG/DL (70-110)
[2018-07-02] MEDS ORDERED: SODIUM CHLORIDE 0.9% 1,000 ML IV ONE (13:45)
[2018-07-02 14:07] LABS: BASOPHILS % (AUTO) 0.9 % (0.0-2.0); EOSINOPHILS % (AUTO) 2.2 % (1.0-6.0); HEMATOCRIT 30.3 % (36-46); HEMOGLOBIN 10.4 g/dL (12.0-16.0); LYMPHOCYTES # (AUTO) 1.1 K/uL (1.0-4.8); MEAN CORPUSCULAR HEMOGLOBIN 30.8 pg (26.0-34.0); MEAN CORPUSCULAR HGB CONC 34.2 G/dL (31.0-37.0); MEAN CORPUSCULAR VOLUME 90 fL (80-100); MONOCYTES # (AUTO) 0.4 K/uL (0.1-1.0); MONOCYTES % (AUTO) 6.1 % (2.0-9.0); NEUTROPHILS # (AUTO) 5.3 K/uL (1.8-7.7); NEUTROPHILS % (AUTO) 74.8 % (40.0-70.0); PLATELET COUNT (AUTO) 237 K/uL (150-450); RED BLOOD CELL COUNT(AUTO) 3.37 MIL/uL (4.00-5.20); RED CELL DISTRIBUTION WIDTH 12.3 % (11.5-14.5)
[2018-07-02 14:17] LABS: CREATININE 5.52 mg/dL (0.60-1.30); POTASSIUM 4.8 mmol/L (3.5-5.1)
[2018-07-02 14:23] LABS: ALBUMIN 2.3 g/dL (3.4-5.0); BILIRUBIN,TOTAL 0.3 mg/dL (0.1-1.0); TOTAL PROTEIN, SERUM 6.8 g/dL (6.4-8.2)
[2018-07-02 15:41] LABS: APPEARANCE,URINE CLEAR (CLEAR); BILIRUBIN,URINE NEGATIVE (NEGATIVE); GLUCOSE, URINE (UA) >=1000 mg/dL (NEGATIVE); KETONES,URINE NEGATIVE (NEGATIVE); LEUKOCYTE ESTERASE ,URINE NEGATIVE (NEGATIVE); NITRATE,URINE NEGATIVE (NEGATIVE); OCCULT BLOOD,URINE TRACE (NEGATIVE); PROTEIN,URINE SEE CONFIRM (NEGATIVE); UROBILINOGEN,URINE 0.2 mg/dL (<=1.0)
[2018-07-02 15:54] LABS: SULFOSALICYLIC ACID,URINE 3+ (Negative)
[2018-07-02 15:55] LABS: BACTERIA,URINE None Seen /HPF (None Seen); RBC,URINE 0-2 /HPF (0-2); SQUAMOUS EPITHELIAL CELL,UR Few /LPF (None Seen); WBC,URINE 0-2 /HPF (0-5)
[2018-07-02 16:14] LABS: GLUCOSE,POINT OF CARE 247 MG/DL (70-110)
[2018-07-02 17:47] VITALS: BP 172/95
[2018-07-02 17:54] LABS: GLUCOSE,POINT OF CARE 155 MG/DL (70-110)
== END 2018-07-02 17:50 | disposition home or self-care (01) ==
LOC: EMS 12:47
DX: R11.2 Nausea with vomiting, unspecified (principal); R80.9 Proteinuria, unspecified; I12.9 Hypertensive chronic kidney disease with stage 1 through stage 4 chronic kidney disease, or unspecified chronic kidney disease; E11.22 Type 2 diabetes mellitus with diabetic chronic kidney disease; N18.9 Chronic kidney disease, unspecified; J45.909 Unspecified asthma, uncomplicated; R81 Glycosuria; Z79.84 Long term (current) use of oral hypoglycemic drugs
CPT/HCPCS: 36415; 76770; 80053; 81001; 82962; 83690; 85025; 93005; 96360; 96361; 99285; J7030